=== PATIENT | male | born 1965 | race Caucasian/White ===

== ENCOUNTER → 2018-04-04 | Outpatient (CLI) | payer BC ==
[~2018-04-04] MED LIST: AMLO5 PO; Bystolic20 MG PO; FLONASE ALLERG9.9 ML NS; NASACORT10.8 ML NS; Ramipril10 MG PO
== END | disposition home or self-care (01) ==
LOC: PLD 07:21 → LAB SHORT 07:21
DX: D22.5 Melanocytic nevi of trunk (principal)
CPT/HCPCS: 88305

== ENCOUNTER → 2018-08-15 | Outpatient (CLI) | payer BC | END | disposition home or self-care (01) | LOC: LAB 06:47 → LAB SHORT 06:47 | DX: Z30.09 Encounter for other general counseling and advice on contraception (principal) ==

== ENCOUNTER → 2018-09-18 | Outpatient (CLI) | payer BC | LOC: LAB SHORT 07:19 → LAB 07:19 | DX: Z30.09 Encounter for other general counseling and advice on contraception (principal) ==

== ENCOUNTER 2019-05-23 07:51 | Day surgery (SDC) | payer BC ==
[~2019-05-23] VITALS: Ht 182.9 cm; Wt 96.6 kg
[~2019-05-23 07:51] MED LIST changes: +Apple Cider Vi300 MG; +FIBER500 MG PO; +FISH OIL 1,2001 EACH PO; +METO50ER PO; +Mobic15 MG PO
== END 2019-05-23 09:47 | disposition home or self-care (01) ==
LOC: ORSCSDS 07:51
PROVIDERS: Surgery
PROC: 0DJD8ZZ Inspection of Lower Intestinal Tract, Via Natural or Artificial Opening Endoscopic (ICD-10-PCS; principal; 2019-05-23 09:00)
DX: Z12.11 Encounter for screening for malignant neoplasm of colon (principal); Z86.010 Personal history of colon polyps; I10 Essential (primary) hypertension; E78.5 Hyperlipidemia, unspecified; G47.33 Obstructive sleep apnea (adult) (pediatric); Z79.899 Other long term (current) drug therapy
CPT/HCPCS: J2704; J7120

== ENCOUNTER → 2020-05-11 | Outpatient (CLI) | payer BC | END | disposition home or self-care (01) | LOC: LAB SHORT 11:35 → PLD 11:35 | DX: D22.5 Melanocytic nevi of trunk (principal) | CPT/HCPCS: 88305 ==

== ENCOUNTER 2022-04-05 05:56 | Day surgery (SDC) | payer BC ==
[~2022-04-05] VITALS: Ht 180.3 cm; Wt 98.5 kg
[2022-04-05] MEDS ORDERED: ACET500 PO (06:33)
--- NOTE | 2022-04-05 07:23 | NUR ---
Ambulatory in Day Surgery WITH CANE. History, Chart, Medications and Allergies reviewed before start of procedure. Patient States Post-Procedure ride home has been arranged WITH .
--- NOTE | 2022-04-05 11:15 | NUR ---
PATIENT ARRIVED TO UNIT VIA BED FROM PACU. VSS ON ROOM AIR. PATIENT DENIES PAIN. X3 BULKY DRESSINGS TO LEFT HIP, C/D/I. PATIENT ABLE TO WIGGLE ALL TOES, HAS SENSATION TO FEET ALTHOUGH REPORTS SOME NUMBNESS STILL. LUNGS CLEAR. ORIENTED TO ROOM AND CALL LIGHT, TOLERATING WATER AND JELLO AT THIS TIME.
--- NOTE | 2022-04-05 17:59 | NUR ---
SHIFT SUMMARY POD 0 R NOEMY, X3 BULKY DRESSINGS IN PLACE, C/D/I. PATIENT HAS VERY MINIMAL PAIN, MEDICATED PER EMAR. PATIENT CLEARED THERAPY WELL ALTHOUGH ELECTED TO STAY THE NIGHT WITH US. EATING, DRINKING, & VOIDING WELL. 1P SBA ASSIST W/ FWW & GB, TO BR & CHAIR. CALLS APPROPRIATLY, WILL REPORT TO ONCOMING RN.
[2022-04-06 04:10] LABS: BASOPHILS ABSOLUTE AUTO 0.01 K/mm3 (0.00-0.23); BASOPHILS PERCENT AUTO 0 % (0-2); EOSINOPHILS PERCENT AUTO 0 % (0-6); Hematocrit 35.5 % (37.0-53.0); Hemoglobin 11.6 g/dL (13.5-17.5); IMMATURE GRAN ABSOLUTE AUTO 0.08 K/mm3 (0.00-0.10); IMMATURE GRAN PERCENT AUTO 1 % (0-1); LYMPHOCYTES ABSOLUTE AUTO 1.52 K/mm3 (0.84-5.20); LYMPHOCYTES PERCENT AUTO 12 % (21-46); MONOCYTES ABSOLUTE AUTO 1.03 K/mm3 (0.16-1.47); MONOCYTES PERCENT AUTO 8 % (4-13); Mean Corpuscular HGB 29.9 pg (26.0-34.0); Mean Corpuscular HGB Conc 32.7 g/dL (31.5-36.5); Mean Corpuscular Volume 92 fL (80-100); Mean Platelet Volume 10.3 fL (9.1-12.4); NEUTROPHILS PERCENT AUTO 80 % (41-73); Platelet Count 241 K/mm3 (150-400); RDW Coefficient Variation 13.3 % (11.7-14.2); RDW Standard Deviation 44.6 fL (35.1-46.3); Red Blood Cell Count 3.88 M/mm3 (4.30-5.90); White Blood Cell Count 13.14 K/mm3 (4.00-11.30)
[2022-04-06 04:29] LABS: Bun/Creatinine Ratio 14.2 (12.0-20.0); Calcium, Blood 8.5 mg/dL (8.5-10.1); Creatinine, Blood 0.85 mg/dL (0.60-1.20); Potassium, Blood 4.3 mmol/L (3.5-5.5)
--- NOTE | 2022-04-06 04:40 | NUR ---
SHIFT SUMMARY PT A&OX4, PLEASANT A COOPERATIVE. PAIN IS WELL CONTROLLED WITH SCHEDULED TYLENOL/TORADOL. TOLERATING PO INTAKE NO N/V. PATIENT IS SBA WITH FWW TO BATHROOM, VOIDING WELL. CALL LIGHT WITHIN REACH.
[2022-04-06] MEDS ORDERED: ASPI81CH PO (08:20)
[2022-04-06] MEDS ORDERED: OXAYDO5 M1 PO (08:31)
[2022-04-06] MEDS ORDERED: PROM25 PO (08:33)
[2022-04-06] MEDS ORDERED: SULTRIDS PO (08:33)
--- NOTE | 2022-04-06 10:00 | NUR ---
DISCHARGE SUMMARY PT POD #1 FOR L TOTAL HIP. DRESSINGS CHANGED TODAY BY DR. DAMON. AQUACEL DRESSINGS CDI. PT'S PAIN CONTROLLED BY EMR. WORKED WITH PHYSICAL THERAPY AND DID WELL. EXPRESSED UNDERSTANDING OF DISCHARGE INSTRUCTIONS. DC'D HOME.
== END 2022-04-06 10:13 | disposition home or self-care (01) ==
LOC: ORSCMMR 05:56 → ORD 07:30 → ORSCMMR 07:30 → SURS 11:10 → ORSCMMR 04-06 10:13
PROVIDERS: Orthopaedic Surgery
PROC: 0SR90JA Replacement of Right Hip Joint with Synthetic Substitute, Uncemented, Open Approach (ICD-10-PCS; principal; 2022-04-05 07:30)
PROC: 8E0YXBZ Computer Assisted Procedure of Lower Extremity (ICD-10-PCS; principal; 2022-04-05 07:30)
DX: M16.11 Unilateral primary osteoarthritis, right hip (principal); I10 Essential (primary) hypertension; G47.33 Obstructive sleep apnea (adult) (pediatric); Z79.899 Other long term (current) drug therapy
CPT/HCPCS: 36415; 72170; 80048; 83735; 85025; 97116; 97161; 97165; 97530; 97535; A9270; C1713; C1776; J0171; J0690; J0735; J1100; J1885; J2250; J2370; J2405; J2704; J2795; J3010; J3370; J7050; J7120

== ENCOUNTER → 2023-01-16 | Outpatient (CLI) | payer BC ==
[~2023-01-16] MED LIST changes: +ACET500 PO; +ASPI81CH PO; +OXAYDO5 M1 PO; +PROM25 PO; +SULTRIDS PO
[2023-01-23 17:09] LABS: CALCIUM OXALATE MONOHYDRATE 100 % (.); COLOR Brown (.); SIZE 6x8 mm (.); WEIGHT 330 mg (.)
== END ==
LOC: LAB SHORT 11:30 → LAB 11:30
PROVIDERS: Family Medicine
DX: N20.0 Calculus of kidney (principal)
CPT/HCPCS: 82365

== ENCOUNTER 2023-10-01 10:40 | Day surgery (SDC) | payer BC ==
[~2023-10-01] VITALS: Ht 180.3 cm; Wt 99.9 kg
[2023-10-01] MEDS ORDERED: NS 50 ML IV ONE (10:55)
[2023-10-01] MEDS ORDERED: CeFAZolin Sodium 2,000 MG VIAL ONE (10:55)
[2023-10-01] MEDS ORDERED: Lactated Ringer's 1,000 ML IV ONE ×2 (10:55→11:22)
[2023-10-01] MEDS ORDERED: Vancomycin HCL 1,000 MG in NS 100 ML IV SCH (11:05)
[2023-10-01] MEDS ORDERED: ROSU10TA PO (11:07)
[2023-10-01] MEDS ORDERED: propofoL 20 ML IV ONE (11:25)
[2023-10-01] MEDS ORDERED: FentaNYL Citrate 50 MCG/ML 2 ML Injection ONE ×2 (11:25→12:28)
[2023-10-01] MEDS ORDERED: Midazolam HCl 1MG / ML 2ML Vial ONE (12:01)
[2023-10-01] MEDS ORDERED: Acetaminophen 500 MG Tab ONE (12:01)
[2023-10-01] MEDS ORDERED: Ondansetron HCl 2 MG / ML 2ML Vial ONE (12:28)
[2023-10-01] MEDS ORDERED: propofoL 40 ML IV ONE (12:28)
[2023-10-01] MEDS ORDERED: Dexamethasone Sod Phos 10 MG/ML 1ML VIAL ONE (12:28)
[2023-10-01] MEDS ORDERED: Dexmedetomidine HCL 200 MCG / 2 ML ONE (12:37)
[2023-10-01] MEDS ORDERED: Ropivacaine 0.5% HCl/Pf 5 MG/ML 20ML VIAL INJ ONE (13:10)
[2023-10-01] MEDS ORDERED: EPINEPhrine HCl 1 MG/ML 1ML Amp XX ONE (13:10)
--- NOTE | 2023-10-01 13:16 | NUR ---
10/01/23 1316 Anais Crawford ROPIVACAINE 0.5% 10MLS MIXED AND VERIFIED W/ EPI 0.05MG (1MG/ML) TO MAKE ROPIVACAINE 0.5% W/ EPI 1:200,000 FOR INJECTION AT OPSITE BY DR. DAMON
[2023-10-01 13:55] VITALS: BP 111/78
--- NOTE | 2023-10-01 14:41 | NUR ---
10/01/23 1441 Shahram Mcdermott RN ASSUMED CARE AT 1435. REPORT WAS GIVEN. PT REPORTED TOLERABLE 2/10 KNEE PAIN AT THAT TIME. HE WAS RELAXED AND RESTING IN RECLINER WITH FAMILY. HE DENIED NAUSEA, CP, SHORTNESS OF BREATH, AND DIZZINESS .
== END 2023-10-01 14:46 | disposition home or self-care (01) ==
LOC: ORSCSDS 10:40
PROVIDERS: Orthopaedic Surgery
PROC: 0SBD4ZZ Excision of Left Knee Joint, Percutaneous Endoscopic Approach (ICD-10-PCS; principal; 2023-10-01 12:15)
DX: S83.242A Other tear of medial meniscus, current injury, left knee, initial encounter (principal); S83.282A Other tear of lateral meniscus, current injury, left knee, initial encounter; M17.12 Unilateral primary osteoarthritis, left knee; I10 Essential (primary) hypertension; G47.33 Obstructive sleep apnea (adult) (pediatric); E78.5 Hyperlipidemia, unspecified; Z79.899 Other long term (current) drug therapy; Z96.641 Presence of right artificial hip joint
CPT/HCPCS: A9270; J0171; J0690; J1100; J2250; J2405; J2704; J2795; J3010; J3370; J7120